=== PATIENT | male | born 1980 | race Caucasian/White ===

== ENCOUNTER 2017-04-12 19:42 | Emergency (ER) | payer OTHER ==
[2017-04-12] MEDS ORDERED: PAXIL (20:02)
[2017-04-12] MEDS ORDERED: LISINOPRIL20 MG (20:03)
[2017-04-12] MEDS ORDERED: FLEXERIL10 MG (20:03)
[2017-04-12] MEDS ORDERED: ROBAXIN 750750 M1 (20:03)
[2017-04-12] MEDS ORDERED: MELOXICAM7.5 MG (20:03)
[2017-04-12] MEDS ORDERED: HYDROXYZINE HCL25 M1 (20:04)
[2017-04-12 21:28] LABS: URINE SOURCE CLEAN CATCH
[2017-04-12 21:30] LABS: URINE APPEARANCE CLEAR; URINE BILIRUBIN NEG (NEG); URINE BLOOD NEG (NEG); URINE COLOR YELLOW; URINE GLUCOSE NEG (NORM); URINE KETONE NEG (NEG); URINE LEUKOCYTE ESTERASE NEG (NEG); URINE NITRATE NEG (NEG); URINE PROTEIN NEG (NEG); URINE SPECIFIC GRAVITY 1.015 (1.003-1.035); URINE UROBILINOGEN 0.2 MG/DL (NORM)
[2017-04-12 21:31] LABS: MICRO INDICATED? NO
[2017-04-12 23:03] LABS: BASOPHIL# 0.1 X10e3 (0-0.3); BASOPHIL% 1.1 % (0-2.5); EOSINOPHIL# 0.1 X10e3 (0-0.7); EOSINOPHIL% 1.3 % (0.0-7.0); HEMATOCRIT 46.9 % (38.0-50.0); LYMPHOCYTE# 2.7 X10e3 (1.0-3.5); MEAN CELL VOLUME 91.9 FL (83-96); MEAN CORPUSCULAR HEMOGLOBIN 31.4 PG (28-34); MEAN CORPUSCULAR HGB CONC 34.2 g/dL (30-36); MONOCYTE# 0.4 X10e3 (0-1.0); MONOCYTE% 4.5 % (3.0-12.0); NEUTROPHIL# 6.2 X10e3 (1.5-7.1); NEUTROPHIL% 65.1 % (40-75); PLATELET COUNT 222 X10e3 (140-420); RED BLOOD COUNT 5.11 X10e (3.90-5.60); RED CELL DISTRIBUTION WIDTH 13.9 % (11.0-15.5); WHITE BLOOD COUNT 9.5 X10e3 (4.0-10.5)
[2017-04-12 23:07] LABS: DIFF IND NO
[2017-04-12 23:20] LABS: CREATININE SERUM 1.1 mg/dL (0.6-1.4); GLOM FILT RATE Estimated 85.9 mL/min (>60); POTASSIUM 3.6 mmol/L (3.5-5.1)
[2017-04-13 00:02] LABS: SEDIMENTATION RATE-SW ONLY 2 mm/hr (0-20)
== END 2017-04-13 00:30 | disposition home or self-care (01) ==
LOC: SED 19:42
PROVIDERS: Emergency Medicine; Nurse Practitioner Family
DX: M54.5 Low back pain (principal); I10 Essential (primary) hypertension; F17.210 Nicotine dependence, cigarettes, uncomplicated; F41.8 Other specified anxiety disorders; Z87.442 Personal history of urinary calculi; Z88.2 Allergy status to sulfonamides; Z88.0 Allergy status to penicillin; Z88.8 Allergy status to other drugs, medicaments and biological substances
CPT/HCPCS: 36415; 51702; 80048; 81003; 85025; 85651; 96361; 96374; 99283; J1885

== ENCOUNTER 2017-04-15 16:05 | Emergency (ER) | payer OTHER ==
[~2017-04-15 16:05] MED LIST: FLEXERIL10 MG; HYDROXYZINE HCL25 M1; LISINOPRIL20 MG; MELOXICAM7.5 MG; PAXIL; ROBAXIN 750750 M1
== END 2017-04-15 17:26 | disposition home or self-care (01) ==
LOC: SED 16:05
DX: M54.5 Low back pain (principal); Z88.2 Allergy status to sulfonamides; Z79.899 Other long term (current) drug therapy; Z88.1 Allergy status to other antibiotic agents
CPT/HCPCS: 99283